=== PATIENT | male | born 1975 | race Caucasian/White ===

== ENCOUNTER 2019-03-18 18:04 | Observation (INO) ==
[2019-03-18] MEDS ORDERED: ASPIRIN 81 MG TAB.CHEW PO ONE (18:15)
[2019-03-18] MEDS: NITROGLYCERIN 0.4 MG/TAB BTL SL PRN ×3 (18:21→23:06)
--- NOTE | 2019-03-18 18:23 | ERNOTE ---
Chest Pain/Cardiac HPI Chief Complaint: Chest Pain Time Seen by Provider: 03/18/19 18:07 Source: patient Exam Limitations: no limitations Immunizations: IMMUNIZATION HX Immunizations Up to Date Yes Allergies/Adverse Reactions: Allergies Penicillins Allergy (Verified 03/18/19 18:17) Sulfa (Sulfonamide Antibiotics) Allergy (Verified 03/18/19 18:17) Home Medications: HOME MEDICATIONS Insulin Regular, Human [Humulin R] 4 unit SC TIDWM 03/18/19 [Last Taken Unknown] Losartan Potassium [Cozaar] 100 mg PO DAILY 03/18/19 [Last Taken Unknown] amLODIPine BESYLATE [Norvasc] 10 mg PO DAILY 03/18/19 [Last Taken Unknown] Narrative: Patient was in his garage doing light work when he started to have central chest pain radiating to his left arm and right side of neck, he had lightheadedness and shortness of breath as well, pain is currently at 6/10 He was seen in [facility] about a month ago with similar symptoms and discharged after evaluation. He had a stress test about ten years ago Date (Duration): 03/18/19 Time (Timing): 17:45 Timing: constant Severity/Quality: moderate, pressure Location: central Chest Pain Radiation: arms, neck Activities at Onset: activity Modifying Factors - Improves: Present: nothing Modifying Factors - Worsens: Present: nothing Nitro Today/Relief: no nitro taken today Aspirin Treatment Today: no aspirin today Associated Symptoms: Present: dizziness, shortness of breath. Absent: diaphoresis, nausea, vomiting Prior Chest Pain/Cardiac Workup: Reports: prior chest pain. Denies: heart attack Prior Treatment: Reports: recently seen. Denies: currently on antibiotics Review of Systems - Review of Systems Constitutional: Absent: recent illness, fever ENT: Absent: nose congestion, sore throat Respiratory: Present: shortness of breath. Absent: cough Cardiology: Present: chest pain Gastrointestinal/Abdominal: Absent: nausea, vomiting, abdominal pain Genitourinary: Present: no symptoms reported Musculoskeletal: Absent: back pain Neurological: Absent: headache Medical History (Updated 03/18/19 @ 19:24 by Jaleesa Lawrence MD) Diabetes Gout HTN (hypertension) Lyme disease Surgical History: Surgical History (Updated 03/18/19 @ 18:16 by Lilian Paige) History of carpal tunnel repair History of cholecystectomy Hx of hernia repair Family History: Family History (Updated 03/18/19 @ 18:17 by Lilian Paige) Sister Cancer Grandmother Cancer Social History: Preferred Language Niuean Smoking Status Current every day smoker Alcohol Use occasionally Drug Use none No Social History Section defined Physical Exam - Physical Exam General Appearance: Present: wd/wn, alert, no apparent distress Head Exam: Present: normal inspection Respiratory: Present: no respiratory distress, normal breath sounds, no accessory muscle use, lungs clear, chest tenderness - left parasternal Cardiovascular/Chest: Present: regular rate, rhythm, no murmur Gastrointestinal/Abdominal: Present: normal bowel sounds, nontender, nondistended, soft Extremity Exam: Present: no edema Neurological Exam: Present: alert, oriented, normal mood/affect Skin Exam: Present: normal color, warm/dry Progress - Results and Orders Patient's Lab Results:: I have reviewed the patient's lab results. - Vital Signs Patient's Vital Signs:: I have reviewed the patient's vital signs. Vital Signs: Vital Signs 03/18/19 18:11 Temperature 36.9 C Pulse Rate 108 H Respiratory Rate 18 Blood Pressure 110/71 O2 Sat by Pulse Oximetry 100 - EKG EKG #1 EKG: NSR - sinutachycardia, nonspecific ST T wave changes EKG read: Interp. by me - X-Ray X-Ray #1 X-Ray: chest - no acute changes Interpretation: Interp. by me - Progress/Reassessment Chief Complaint: Chest Pain Progress Note-Subjective: 03/18/19 18:49 no significant relieve after first nitro 03/18/19 19:15 discussed test results with patient and significant other, explained limitations of test to rule out CAD offered admission, patient agreed pain slight improved after nitro 03/18/19 19:[address] Cruz, pelonay to admit for chest pain observation Departure Clinical Impression: Smoking Chest pain Qualifiers: Chest pain type: unspecified Qualified Code(s): R07.9 - Chest pain, unspecified Diabetes Qualifiers: Diabetes mellitus type: type 2 Diabetes mellitus watermelon harvesting supervisor insulin use: with mcc use Diabetes mellitus complication status: without complication Qualified Code(s): E11.9 - Type 2 diabetes mellitus without complications; Z79.4 - watermelon inspector (current) use of insulin Hypertension Qualifiers: Hypertension type: essential hypertension Qualified Code(s): I10 - Essential (primary) hypertension - Departure Disposition: Still a patient Condition: Good
[2019-03-18 18:32] LABS: Hematocrit 42.4 % (42.0-52.0); Hemoglobin 14.2 gm/dL (13.5-18.0); Mean Corpuscular Hemoglobin 31.5 pg (27-31); Mean Corpuscular Hgb Conc 33.5 g/dl (32-36); Mean Platelet Volume 9.4 fl (8-11.3); Neutrophil # 7.2 K/mm3 (1.3-6.0); Neutrophil % 69.8 % (42-75.0); Platelet Count 292 K/mm3 (150-450); Red Blood Count 4.51 M/mm3 (4.7-6.0); Red Cell Distribution Width 14.5 % (11.5-14.0); White Blood Count 10.4 K/mm3 (4.0-10.5)
[2019-03-18 18:46] LABS: Albumin * 3.7 gm/dl (3.4-5.0); BUN/Creatinine Ratio 8.1 (9.0-21.6); Blood Urea Nitrogen 17 mg/dL (6-23); Calcium * 9.1 mg/dL (7.9-10.9); Carbon Dioxide 25.3 mmol/L (24-32.6); Chloride 98 mmol/L (97-106); Glucose * 183 mg/dL (70-110); Potassium 3.3 mmol/L (3.4-4.6); Sodium 135 mmol/L (132-142); Total Protein 7.7 gm/dL (6.2-8.2)
[2019-03-18 18:47] LABS: ALT 18 U/L (19-67); AST 12 U/L (0-48); Alkaline Phosphatase * 87 U/L (50-170); Bilirubin, Total 0.7 mg/dL (0.0-1.1)
[2019-03-18] MEDS ORDERED: NORMAL SALINE 1,000 ML IV ONE (18:48)
[2019-03-18 18:51] LABS: Troponin I Less than 0.017 ng/mL (0.00-0.10)
[2019-03-18] MEDS ORDERED: ROSUVASTATIN CALCIUM 20 MG TABLET PO STA (19:30)
[2019-03-18] MEDS ORDERED: ZOLPIDEM TARTRATE 10 MG TABLET PO PRN (20:28)
[2019-03-18] MEDS ORDERED: NICOTINE 21 MG PATC TD SCH (21:00)
--- NOTE | 2019-03-18 21:01 | HP ---
Chief Complaint - Chief Complaint Date of Service: 03/18/19 Time of Service: 20:49 Chief Complaint: I have chest pain with shortness of breath History of Present Illness: 43-year-old male with past medical history of type 2 diabetes on insulin, chronic disease, gout, hypertension, Lyme disease, active smoker, came to our ER due to retrosternal chest pain of 7 out of 10 intensity radiating to the left arm accompanied by shortness of breath, dizziness, and heaviness in his left upper extremity as well as left lower extremity. 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 Shortly after that the patient started having pain in the center of his chest that he radiated to his left upper extremity as well as the left side of his neck, and started having shortness of breath. Patient reports having similar symptoms several months ago for which she went to an ER and underwent cardiac enzymes and EKG evaluation which were both negative. Since then patient has not seen his PCP and has not undergone a stress test. However he reports he underwent a stress test over 10 years ago and was told that it was normal. Medical History (Updated 03/18/19 @ 19:59 by Keren Camacho RN) Crohns disease Diabetes Gout HTN (hypertension) Lyme disease Surgical History: Surgical History (Updated 03/18/19 @ 19:59 by Keren Camacho RN) History of carpal tunnel repair bilateral History of cholecystectomy Hx of hernia repair Family History: Family History (Updated 03/18/19 @ 18:17 by Lilian Paige) Sister Cancer Grandmother Cancer Social History: Patient Lives/Resources With Spouse Utilized Occupation unemployed Preferred Language Kenyan Do you have any episcopal or No cultural preference? Smoking Status Current every day smoker Have you smoked in the past 12 Yes months Alcohol Use occasionally Drug Use none No Social History Section defined Peds Patient Hx - Developmental: No Pertinent Hx Peds Patient Hx - Medical: No Pertinent Hx Peds Patient Hx - Cardiac/Respiratory: No Pertinent Hx Peds Patient Hx - Surgical: No Surgical History Patient History - Cancer: No Hx of Cancer Review Of Systems (GEN) - Review of Systems Generalized/Overall Review: Present: Diaphoresis EENTM: Present: No Symptoms Reported Respiratory: Present: Shortness of Breath Cardiac: Present: Chest Pain Abdominal: Present: No Symptoms Reported Genitourinary: Present: No Symptoms Reported Musculoskeletal: Present: No Symptoms Reported Neurological: Present: No Symptoms Reported Skin: Present: No Symptoms Reported Endocrine: Present: No Symptoms Reported Immunizations: IMMUNIZATION HX Immunizations Up to Date Yes Allergies/Adverse Reactions: Allergies Allergy/AdvReac Type Severity Reaction Status Date / Time Penicillins Allergy Verified 03/18/19 20:00 Sulfa (Sulfonamide Allergy Verified 03/18/19 20:00 Antibiotics) Home Medications: HOME MEDICATIONS Chlorthalidone [Hygroton] 25 mg PO DAILY 03/18/19 [Last Taken Unknown] FLUoxetine HCL [Prozac] 40 mg PO DAILY 03/18/19 [Last Taken Unknown] Insulin Regular, Human [Humulin R] 4 unit SC TIDWM 03/18/19 [Last Taken Unknown] Losartan Potassium [Cozaar] 100 mg PO DAILY 03/18/19 [Last Taken Unknown] Omeprazole 40 mg PO DAILY 03/18/19 [Last Taken Unknown] Sildenafil Citrate [Viagra] 50 mg PO PRN 03/18/19 [Last Taken Unknown] Zolpidem Tartrate [Ambien] 10 mg PO HS PRN 03/18/19 [Last Taken Unknown] amLODIPine BESYLATE [Norvasc] 10 mg PO DAILY 03/18/19 [Last Taken Unknown] azaTHIOprine [Imuran] 225 mg PO DAILY 03/18/19 [Last Taken Unknown] Exam - Exam Vital Signs: Vital Signs - Last Taken Temp 36.8 C 03/18/19 20:13 Pulse 92 03/18/19 20:13 Resp 14 03/18/19 20:13 BP 111/71 03/18/19 20:13 Pulse Ox 96 03/18/19 20:13 Constitutional: Present: Alert, Oriented x3, Cooperative, Well developed, Well nourished, Obese ENT Exam: Present: normal ENT inspection, hearing grossly normal, pharynx normal, TMs normal Eye Exam: bilateral eye: normal inspection, PERRL, EOMI Neck: Present: non-tender, full range of motion, supple, normal inspection, trachea midline Back Exam: Present: normal inspection, no CVA tenderness, no vertebral tenderness Breasts: Present: Exam deferred Respiratory: Present: chest non-tender, lungs clear, normal breath sounds, no respiratory distress, no accessory muscle use Cardiovascular/Chest: Present: normal peripheral pulses, regular rate, rhythm, no chest tenderness, no edema, no gallop, no JVD, no murmur, no rub Peripheral Pulses: carotid (R): 4+, carotid (L): 4+, femoral (R): 4+, femoral (L): 4+, dorsalis-pedis (R): 4+, dorsalis-pedis (L): 4+ Abdomen: Present: Normal bowel sounds, soft, nontender, nondistended, no rebound tenderness, no hepatospenomegaly, obese /Rectal: Present: Exam deferred Extremity: Present: normal range of motion, non-tender, normal inspection, no pedal edema, no calf tenderness, normal capillary refill, pelvis stable Skin Exam: Present: normal color, warm/dry, no cyanosis Lymphatic: Present: no adenopathy Neurologic: Present: supply controller II-XII nml as tested, normal cerebellar test, no motor/sensory deficits, alert, normal mood/affect, oriented x 3 Appearance: Present: appropriate appearance Eye contact: Present: cooperative, good eye contact, normal speech Thoughts: Present: normal thought pattern, no apparent hallucination Diagnostic Studies: Abnormal Lab Results 03/18/19 03/18/19 Range/Units 18:26 18:26 RBC 4.51 L (4.7-6.0) M/mm3 MCH 31.5 H (27-31) pg RDW 14.5 H (11.5-14.0) % Immature Gran % (Auto) 1.30 H (0.001-0.429) % Immature Gran # (Auto) 0.13 H (0.000-0.0310) K/mm3 Basophils % 1.7 H (0.0-1.0) % Neutrophils # 7.2 H (1.3-6.0) K/mm3 Absolute Basophils 0.2 H (0.0-0.1) k/mm3 Potassium 3.3 L (3.4-4.6) mmol/L Anion Gap 15.0 H (6.8-13.8) mmol/L Creatinine 2.11 H (0.4-1.4) mg/dL Est GFR (Non-Af Amer) 36 L (60-130) mL/min BUN/Creatinine Ratio 8.1 L (9.0-21.6) Random Glucose 183 H (70-110) mg/dL ALT 18 L (19-67) U/L Laboratory Results WBC 10.4 K/mm3 (4.0-10.5) 03/18/19 18: RBC 4.51 M/mm3 (4.7-6.0) L 03/18/19 18:26 Hgb 14.2 gm/dL (13.5-18.0) 03/18/19 18:26 Hct 42.4 % (42.0-52.0) 03/18/19 18: MCV 94.0 fl (78-100) 03/18/19 18: MCH 31.5 pg (27-31) H 03/18/19 18: MCHC 33.5 g/dl (32-36) 03/18/19 18: RDW 14.5 % (11.5-14.0) H 03/18/19 18: Plt Count 292 K/mm3 (150-450) 03/18/19 18: MPV 9.4 fl (8-11.3) 03/18/19 18:26 Immature Gran % (Auto) 1.30 % (0.001-0.429) H 03/18/19 18: Immature Gran # (Auto) 0.13 K/mm3 (0.000-0.0310) H 03/18/19 18:26 69.8 % (42-75.0) 03/18/19 18:26 20.0 % (20-51) 03/18/19 18:26 5.6 % (0.0-9) 03/18/19 18:26 1.6 % (0.0-3.0) 03/18/19 18:26 1.7 % (0.0-1.0) H 03/18/19 18:26 Nucleated RBC % 0.0 k/mm3 (0-1) 03/18/19 18:26 7.2 K/mm3 (1.3-6.0) H 03/18/19 18:26 2.08 k/mm3 (1.5-3.5) 03/18/19 18:26 0.6 k/mm3 (0.0-1.0) 03/18/19 18:26 0.2 k/mm3 (0.0-0.7) 03/18/19 18: Absolute Basophils 0.2 k/mm3 (0.0-0.1) H 03/18/19 18:26 Sodium 135 mmol/L (132-142) 03/18/19 18: 136 mmol/L (130-142) 03/18/19 18: Potassium 3.3 mmol/L (3.4-4.6) L 03/18/19 18: Chloride 98 mmol/L (97-106) 03/18/19 18: Carbon Dioxide 25.3 mmol/L (24-32.6) 03/18/19 18: 15.0 mmol/L (6.8-13.8) H 03/18/19 18: BUN 17 mg/dL (6-23) 03/18/19 18: 2.11 mg/dL (0.4-1.4) H 03/18/19 18: Est GFR (Non-Af Amer) 36 mL/min (60-130) L 03/18/19 18: 8.1 (9.0-21.6) L 03/18/19 18: 183 mg/dL (70-110) H 03/18/19 18: Calcium 9.1 mg/dL (7.9-10.9) 03/18/19 18: Calcium Adj for Albumin 9.0 mg/dL (8.4-10.2) 03/18/19 18: 0.7 mg/dL (0.0-1.1) 03/18/19 18: AST 12 U/L (0-48) 03/18/19 18: ALT 18 U/L (19-67) L 03/18/19 18: 87 U/L (50-170) 03/18/19 18: Less than 0.017 ng/mL (0.00-0.10) 03/18/19 18: 7.7 gm/dL (6.2-8.2) 03/18/19 18:26 3.7 gm/dl (3.4-5.0) 03/18/19 18:26 Assessment/Plan - Narrative Narrative: After evaluation of patient and the medical record decision to admit for rule out myocardial infarction was taken. First cardiac troponins were negative and EKG did not demonstrate any significant findings, however as a precaution patient was admitted to observation to undergo a second cardiac enzyme valuation. He was administered aspirin and nitroglycerin and reports mild improvement of his chest discomfort he now reports chest pressure but no pain. We will await repeat cardiac troponins to rule out AL. Patient was recommended to establish with a PCP here in [place] since he complains that he has not seen his PCP due to the distance, it was also recommended to him that he should undergo stress testing as soon it is up it is possible to rule out any coronary artery disease. - Assessment/Plan (1) Ruled out for myocardial infarction Problem: Acute (2) Diabetes mellitus Problem: Chronic Qualifiers: Diabetes mellitus type: type 2 Diabetes mellitus complication detail: with chronic kidney disease Chronic kidney disease stage: stage 3 (moderate) (3) Insulin dependent diabetes mellitus Problem: Chronic (4) Nicotine dependence Problem: Chronic (5) Smoker Problem: Chronic (6) Chest pain Problem: Acute (7) Stage 3b chronic kidney disease Problem: Chronic
[2019-03-18] MEDS ORDERED: POTASSIUM CHLORIDE 20 MEQ TABLET.SA PO ONE (23:20)
[2019-03-18] MEDS ORDERED: PRAMIPEXOLE DI-HCL 0.5 MG TABLET PO SCH (23:30)
[2019-03-19] MEDS ORDERED: LIDOCAINE HCL 20 ML UDC PO STA (01:19)
[2019-03-19] MEDS ORDERED: MAG HYDROX/ALUMINUM HYD/SIMETH 30 ML UDC PO STA (01:19)
[2019-03-19] MEDS ORDERED: LIDOCAINE HCL 20 ML UDC ONE (01:34)
[2019-03-19] MEDS ORDERED: MAG HYDROX/ALUMINUM HYD/SIMETH 30 ML UDC ONE (01:34)
[2019-03-19] MEDS ORDERED: CHLORTHALIDONE 25 MG TABLET PO SCH (09:00)
[2019-03-19] MEDS ORDERED: FLUoxetine HCL 20 MG CAPSULE PO SCH (09:00)
[2019-03-19] MEDS ORDERED: PANTOPRAZOLE SODIUM 40 MG TABLET.EC PO SCH (09:00)
[2019-03-19] MEDS ORDERED: amLODIPine BESYLATE 10 MG TABLET PO SCH (09:00)
[2019-03-19] MEDS ORDERED: LOSARTAN POTASSIUM 50 MG TABLET PO SCH (09:00)
[2019-03-19] MEDS ORDERED: azaTHIOprine 50 MG TABLET PO SCH (09:00)
[2019-03-19] MEDS ORDERED: OMEPRAZOLE 20 MG CAPSULE.SA PO SCH (09:00)
[2019-03-19] MEDS ORDERED: INSULIN REGULAR, HUMAN 100 UNITS/ML VIAL SC SCH (09:00)
--- NOTE | 2019-03-19 10:37 | DS ---
(1) Ruled out for myocardial infarction Problem: Ruled-out (2) Diabetes mellitus Problem: Chronic Qualifiers: Diabetes mellitus type: type 2 Diabetes mellitus complication detail: with chronic kidney disease Chronic kidney disease stage: stage 3 (moderate) (3) Insulin dependent diabetes mellitus Problem: Chronic (4) Nicotine dependence Problem: Chronic (5) Smoker Problem: Chronic (6) Chest pain Problem: Resolved (7) Stage 3b chronic kidney disease Problem: Chronic Description of Stay: 43-year-old male admitted for chest pain and a ruling out of [place] was evaluated at bedside and was found to be afebrile in no acute distress. Patient denies recurrence of the chest pain or any other symptom, follow-up cardiac troponins are negative as well as follow-up EKG. Patient was given a lengthy counseling session about the importance of quitting smoking to decrease his chances of worsening coronary heart disease. He was also instructed to establish with a PCP closer to his home preferably here at [facility] so that a cardiac stress test as well as a cardiology referral can be provided to him. Patient was also informed that his GFR is significantly low for his age, he tells me that he was not aware of this and has never seen a inseam leveler. It was explained to him that once he is established with a PCP that he will be referred to inseam leveler to investigate the cause of his kidney disease and that follow-up of GFR will take place. Patient's medications will be reconciled so that he can resume his routine treatment at home. He was instructed to return to our ER if chest pain recurs. Patient was also instructed to take a baby aspirin daily given his risk factors, prescription was sent to pharmacy but he was also informed that he has option of buying [id number]. Procedures Performed: none Results and Findings: Lab Pending Results 03/18/19 18:26: WBC 10.4, RBC 4.51 L, Hgb 14.2, Hct 42.4, MCV 94.0, MCH 31.5 H, MCHC 33.5, RDW 14.5 H, Plt Count 292, MPV 9.4, Immature Gran % (Auto) 1.30 H, Immature Gran # (Auto) 0.13 H, Neutrophils % 69.8, Lymphocytes % 20.0, Monocytes % 5.6, Eosinophils % 1.6, Basophils % 1.7 H, Nucleated RBC % 0.0, Neutrophils # 7.2 H, Lymphocytes # 2.08, Monocytes # 0.6, Eosinophils # 0.2, Absolute Basophils 0.2 H 03/18/19 18:26: Sodium 135, Plasma Sodium 136, Potassium 3.3 L, Chloride 98, Carbon Dioxide 25.3, Anion Gap 15.0 H, BUN 17, Creatinine 2.11 H, Est GFR (Non- Af Amer) 36 L, BUN/Creatinine Ratio 8.1 L, Random Glucose 183 H, Calcium 9.1, Calcium Adj for Albumin 9.0, Total Bilirubin 0.7, AST 12, ALT 18 L, Alkaline Phosphatase 87, Troponin I Less than 0.017, Total Protein 7.7, Albumin 3.7 03/19/19 00:35: Troponin I Less than 0.017 Discharge Location: Home Disposition: Home self-care Condition: Good Discharge Activity: Activity as tolerated Discharge Diet: Consistent carbs Referrals: Jing Childs ARNP [Primary Care Provider] - Prescriptions (Any new or edited meds): Aspirin [Aspirin Enteric Coated] 81 mg PO DAILY 60 Days #30 tablet. Complete Home Medications List: Complete Home Medication List: Chlorthalidone [Hygroton] 25 mg PO DAILY 03/18/19 FLUoxetine HCL [Prozac] 40 mg PO DAILY 03/18/19 Insulin Regular, Human [Humulin R] 4 unit SC TIDWM 03/18/19 Losartan Potassium [Cozaar] 100 mg PO DAILY 03/18/19 Omeprazole 40 mg PO DAILY 03/18/19 Sildenafil Citrate [Viagra] 50 mg PO PRN 03/18/19 Zolpidem Tartrate [Ambien] 10 mg PO HS PRN 03/18/19 amLODIPine BESYLATE [Norvasc] 10 mg PO DAILY 03/18/19 azaTHIOprine [Imuran] 225 mg PO DAILY 03/18/19 Aspirin [Aspirin Enteric Coated] 81 mg PO DAILY 60 Days #30 tablet. 03/19/19
[2019-03-19 11:18] VITALS: BP 127/87
[2019-03-19] MEDS ORDERED: REMOVE NICOTINE TP SCH (21:00)
== END 2019-03-19 11:28 | disposition home or self-care (01) ==
LOC: ER 18:04 → MS 18:04
PROVIDERS: ADMIT Family Medicine; ATTEND Family Medicine
CPT/HCPCS: 36415; 71020; 71046; 80053; 84484; 85025; 93005; 96360; 96361; 96372; 99285; G0378